=== PATIENT | female | born 1990 | race Caucasian/White ===

== ENCOUNTER 2025-04-22 12:33 | Emergency (ER) | payer OTHER ==
[~2025-04-22] VITALS: Ht 157.5 cm; Wt 88.0 kg
[2025-04-22 13:03] LABS: BASOPHILS % 0.5 % (0.0-2.0); EOSINOPHILS % 8.5 % (0.0-5.0); HEMATOCRIT. 42.8 % (36.0-48.0); HEMOGLOBIN. 14.1 g/dL (12.0-16.0); LYMPHOCYTES % 21.2 % (20.0-50.0); MEAN PLATELET VOLUME 9.0 fl (7.4-10.4); MONOCYTES % 5.5 % (2.0-8.0); NEUTROPHILS % 64.3 % (40.0-76.0); PLATELET 290 x1000/uL (130-400); RED BLOOD CELL COUNT 4.94 mill/uL (4.2-5.4); RED CELL DISTRIBUTION WIDTH 12.9 % (11.6-14.6)
[2025-04-22 13:23] LABS: CREATININE 0.8 mg/dL (0.6-1.0); UREA NITROGEN BLOOD 9 mg/dL (9-23)
[2025-04-22 13:24] LABS: TROPONIN I HIGH SENSITIVITY < 4 ng/L (3.0-34)
[2025-04-22] MEDS: ALBUTEROL (0.083%) 2.5MG/3ML NEB HHN SCH (14:15)
[2025-04-22] MEDS: IPRATROPIUM BROMIDE (0.02%) 0.5MG/2.5ML NEB HHN SCH (14:15)
[2025-04-22] MEDS ORDERED: DEXAMETHASONE 4MG TABLET PO ONE (14:15)
[2025-04-22 14:35] VITALS: PULSE 86; RESP 20; TEMP 36.9; O2SAT 99
[2025-04-22] MEDS: DEXAMETHASONE 4MG TABLET PO SCH (15:15)
[2025-04-22] MEDS ORDERED: FLUT1DIS3 INH (15:52)
[2025-04-22] MEDS ORDERED: TUSSL MT (15:52)
[2025-04-22] MEDS ORDERED: AZIT250T12 MT (15:53)
[2025-04-22 16:14] VITALS: BP 158/101; PULSE 92; RESP 20; O2SAT 99
== END 2025-04-22 14:41 | disposition home or self-care (01) ==
LOC: ER 12:33
DX: J45.901 Unspecified asthma with (acute) exacerbation (principal); J20.9 Acute bronchitis, unspecified; I10 Essential (primary) hypertension; F41.9 Anxiety disorder, unspecified; N93.9 Abnormal uterine and vaginal bleeding, unspecified; F32.A Depression, unspecified; Z79.899 Other long term (current) drug therapy
CPT/HCPCS: 80048; 85025; 84484; 36415; 71045; 94640; 93005; 99285; J8540; Z7610 ×3; 94070